=== PATIENT | female | born 1945 | race Caucasian/White ===

== ENCOUNTER 2021-02-21 10:04 | Emergency (ER) | payer MEDICARE ==
[2021-02-21] MEDS ORDERED: Sodium Chloride 0.9% 500 ML ONE ×2 (10:50→12:18)
[2021-02-21 11:10] LABS: ALT (SGPT) 29 U/L (8-55); AST (SGOT) 19 U/L (5-34); Albumin 3.7 g/dL (3.4-4.8); Alkaline Phosphatase 85 U/L (40-110); Anion Gap 14 mmol/L (10-20); BUN (Urea Nitrogen) 9 mg/dL (9.8-20.1); Bilirubin, Total 1.2 mg/dL (0.2-1.2); Calc. Creatinine Clearance 0 mL/min (70-130); Calcium 9.2 mg/dL (7.8-10.44); Carbon Dioxide 30 mmol/L (23-31); Chloride 89 mmol/L (98-107); Globulin 2.4 g/dL (2.4-3.5); Glucose 136 mg/dL (83-110); Potassium 4.2 mmol/L (3.5-5.1); Protein, Total 6.1 g/dL (5.8-8.1); Sodium 129 mmol/L (136-145)
[2021-02-21 11:17] LABS: Hemoglobin 12.5 g/dL (12.0-16.0); Mean Corpuscular HGB CONC 33.3 g/dL (32.0-36.0); Mean Corpuscular Hemoglobin 32.5 pg (27.0-31.0); Mean Corpuscular Volume 97.8 fL (78.0-98.0); Mean Platelet Volume 7.9 fL (7.4-10.4); Platelet Count 236 thou/uL (130-400); RBC Distribution Width 11.9 % (11.5-14.5); Red Blood Cell (RBC) Count 3.84 mill/uL (4.20-5.40); White Blood Cell (WBC) Count 12.6 thou/uL (4.8-10.8)
[2021-02-21 11:18] LABS: Band 3 % (5-11); Lymphocytes 5 % (21-51); MDiff Complete? YES; Monocytes 2 % (0-10); Neutrophil 90 % (42-75); Platelet Morphology Comment Appears Adequate
[2021-02-21] MEDS ORDERED: Sodium Chloride 0.9% 250 ML 250 ML ONE (11:25)
[2021-02-21] MEDS ORDERED: cefTRIAXone\\ROCEPHIN 2 GM VIAL ONE (11:25)
[2021-02-21] MEDS ORDERED: Azithromycin 500 MG VIAL ONE (11:25)
[2021-02-21] MEDS ORDERED: Sodium Chloride 0.9% 100 ML ONE (11:25)
[2021-02-21 11:35] LABS: Bilirubin Negative (Negative); Blood, Urine Trace (Negative); Clarity Clear (Clear); Glucose, Urine (Dipstick) Negative (Negative); Ketone, Urine Trace mg/dL (Negative); Leukocyte Negative (Negative); Nitrite Negative (Negative); Protein, Urine (Dipstick) 100 mg/dL (Neg-Trace)
[2021-02-21 11:46] LABS: Bacteria/HPF Rare-Few HPF (None Seen); RBC/HPF 0-3 HPF (0-3); Squamous Epithelial 0-3 HPF (0-3)
[2021-02-21 11:54] LABS: Bicarbonate (HCO3v) 30.9 mmol/L (22.0-28.0); CO2 Tension (PvCO2) 54.7 mmHg (42.0-51.0); Calcium, Ionized 1.14 mmol/L (1.15-1.33); Chloride 89 mmol/L (98-107); Hemoglobin - Calc 13.7 g/dL (12.0-16.0); Potassium 4.1 mmol/L (3.5-5.1); Sodium 131 mmol/L (138-145); T. Carbon Dioxide 32.6 mmol/L (22.0-28.0); vO2 Saturation-calc 61.5 % (60.0-85.0)
[2021-02-21 11:59] LABS: SARS-CoV-2 NAA Rapid Test Not Detected (NotDetected)
[2021-02-21] MEDS ORDERED: Albuterol Sulfate 2.5 mg/3 ml Neb ONE (14:44)
[2021-02-21] MEDS ORDERED: Sodium Chloride 0.9% 1,000 ML ONE (16:13)
[2021-02-21] MEDS ORDERED: Mometasone/Formoterol 200/5 60 PUFF INH SCH (19:00)
[2021-02-21] MEDS ORDERED: Budesonide 0.5 MG/2 ML NEB ONE (19:42)
[2021-02-21] MEDS ORDERED: Albuterol Sulfate 2.5 mg/0.5 ml Neb ONE (19:42)
== END 2021-02-21 20:23 | disposition short-term general hospital (02) ==
LOC: NAV ERS 10:04
DX: J18.9 Pneumonia, unspecified organism (principal); R00.0 Tachycardia, unspecified; E03.9 Hypothyroidism, unspecified; J44.9 Chronic obstructive pulmonary disease, unspecified; I48.91 Unspecified atrial fibrillation; M19.90 Unspecified osteoarthritis, unspecified site; Z87.891 Personal history of nicotine dependence; Z79.01 Long term (current) use of anticoagulants; Z79.899 Other long term (current) drug therapy; Z20.822 Contact with and (suspected) exposure to COVID-19
CPT/HCPCS: 0240U; 71045; 80053; 81003; 81015; 82330; 82803; 83605; 83880; 84484; 85014; 85025; 87040; 93005; 94640; 94760; 96365; 96367; J0456; J0696; J3490; J7030; J7050; J7611; J7626

== ENCOUNTER 2021-02-25 13:14 | Inpatient (IN) | payer MEDICARE ==
[2021-02-25] MEDS ORDERED: Albuterol Sulfate 2.5 mg/3 ml Neb NEB PRN (14:20)
[2021-02-25 14:29] VITALS: BMI 18.1
[2021-02-25] MEDS: Dronedarone HCl 400 MG TAB PO SCH (17:42)
[2021-02-25] MEDS: Ipratropium Bromide 2.5 ml Neb NEB SCH (17:42)
[2021-02-25] MEDS: ALPRAZolam 0.25 MG TAB PO PRN (20:28)
[2021-02-25] MEDS: Mometasone/Formoterol 200/5 60 PUFF INH SCH (20:28)
[2021-02-25] MEDS: guaiFENesin ER 600 MG TAB PO SCH (20:29)
[2021-02-25] MEDS: Cefdinir 300 MG CAP PO SCH (20:30)
[2021-02-25] MEDS: Doxycycline 100 MG CAP PO SCH (20:30)
[2021-02-25] MEDS: Vit A,C & E/Lutein/Minerals Tablet PO SCH (20:30)
[2021-02-25] MEDS: Famotidine 20 MG TAB PO SCH (20:31)
[2021-02-25] MEDS: Apixaban 5 MG TAB PO SCH (20:31)
[2021-02-26] MEDS: Ipratropium Bromide 2.5 ml Neb NEB SCH ×4 (00:21→17:43)
[2021-02-26] MEDS: Levothyroxine Sodium 112 MCG TAB PO SCH (05:35)
[2021-02-26] MEDS: ALPRAZolam 0.25 MG TAB PO PRN ×3 (05:54→21:11)
[2021-02-26 06:15] LABS: Hemoglobin 14.6 g/dL (12.0-16.0)
[2021-02-26 06:16] LABS: Platelet Count 339 thou/uL (130-400)
[2021-02-26 06:26] LABS: Calc. Creatinine Clearance 64 mL/min (70-130)
[2021-02-26] MEDS: Polyethylene Glycol 3350 17 GM Packet PO SCH (08:09)
[2021-02-26] MEDS: guaiFENesin ER 600 MG TAB PO SCH ×2 (08:11→21:11)
[2021-02-26] MEDS: Dronedarone HCl 400 MG TAB PO SCH ×2 (08:11→17:43)
[2021-02-26] MEDS: Cefdinir 300 MG CAP PO SCH ×2 (08:11→21:10)
[2021-02-26] MEDS: Furosemide 20 MG TAB PO SCH (08:11)
[2021-02-26] MEDS: Apixaban 5 MG TAB PO SCH ×2 (08:11→21:10)
[2021-02-26] MEDS: Doxycycline 100 MG CAP PO SCH ×2 (08:12→21:10)
[2021-02-26] MEDS: Vit A,C & E/Lutein/Minerals Tablet PO SCH ×2 (08:12→21:11)
[2021-02-26] MEDS: Famotidine 20 MG TAB PO SCH ×2 (08:12→21:21)
[2021-02-26] MEDS: Multivitamin W/ Minerals 1 TAB PO SCH (08:13)
[2021-02-26] MEDS: Mometasone/Formoterol 200/5 60 PUFF INH SCH ×2 (08:13→21:12)
[2021-02-26] MEDS: LACTINEX 1 TAB PO SCH (08:52)
[2021-02-26] MEDS ORDERED: predniSONE 20 MG TAB PO SCH (09:00)
[2021-02-26] MEDS: predniSONE 10 MG TAB PO SCH (10:39)
[2021-02-26 14:34] LABS: SARS-CoV-2 PCR by NAA Not Detected (NotDetected)
[2021-02-27] MEDS: Ipratropium Bromide 2.5 ml Neb NEB SCH ×5 (00:32→23:18)
[2021-02-27] MEDS: Levothyroxine Sodium 112 MCG TAB PO SCH (06:04)
[2021-02-27 06:44] LABS: ALT (SGPT) 29 U/L (8-55); AST (SGOT) 16 U/L (5-34); Albumin 3.5 g/dL (3.4-4.8); Alkaline Phosphatase 81 U/L (40-110); Anion Gap 12 mmol/L (10-20); BUN (Urea Nitrogen) 13 mg/dL (9.8-20.1); Bilirubin, Total 0.5 mg/dL (0.2-1.2); Calc. Creatinine Clearance 61 mL/min (70-130); Calcium 9.5 mg/dL (7.8-10.44); Carbon Dioxide 33 mmol/L (23-31); Chloride 93 mmol/L (98-107); Glucose 89 mg/dL (83-110); Protein, Total 6.5 g/dL (5.8-8.1); Sodium 134 mmol/L (136-145)
[2021-02-27 07:08] LABS: Hemoglobin 13.8 g/dL (12.0-16.0); MDiff Complete? YES; Mean Corpuscular HGB CONC 32.4 g/dL (32.0-36.0); Mean Corpuscular Hemoglobin 31.8 pg (27.0-31.0); Mean Corpuscular Volume 97.9 fL (78.0-98.0); Mean Platelet Volume 6.2 fL (7.4-10.4); Platelet Count 549 thou/uL (130-400); Red Blood Cell (RBC) Count 4.35 mill/uL (4.20-5.40); White Blood Cell (WBC) Count 16.6 thou/uL (4.8-10.8)
[2021-02-27 07:09] LABS: Lymphocytes 4 % (21-51); Monocytes 7 % (0-10); Neutrophil 89 % (42-75); Platelet Morphology Comment Appears Increased
[2021-02-27] MEDS: Mometasone/Formoterol 200/5 60 PUFF INH SCH ×2 (07:53→20:23)
[2021-02-27] MEDS: predniSONE 10 MG TAB PO SCH (07:54)
[2021-02-27] MEDS: Polyethylene Glycol 3350 17 GM Packet PO SCH (07:54)
[2021-02-27] MEDS: guaiFENesin ER 600 MG TAB PO SCH ×2 (07:54→20:24)
[2021-02-27] MEDS: Multivitamin W/ Minerals 1 TAB PO SCH (07:54)
[2021-02-27] MEDS: Dronedarone HCl 400 MG TAB PO SCH ×2 (07:55→17:08)
[2021-02-27] MEDS: Furosemide 20 MG TAB PO SCH (07:55)
[2021-02-27] MEDS: Apixaban 5 MG TAB PO SCH ×2 (07:55→20:25)
[2021-02-27] MEDS: Doxycycline 100 MG CAP PO SCH ×2 (07:55→20:26)
[2021-02-27] MEDS: Cefdinir 300 MG CAP PO SCH ×2 (07:55→20:25)
[2021-02-27] MEDS: LACTINEX 1 TAB PO SCH (07:55)
[2021-02-27] MEDS: Vit A,C & E/Lutein/Minerals Tablet PO SCH ×2 (07:55→20:26)
[2021-02-27] MEDS: Famotidine 20 MG TAB PO SCH ×2 (07:56→20:26)
[2021-02-27] MEDS: ALPRAZolam 0.25 MG TAB PO PRN ×2 (08:02→20:25)
[2021-02-28] MEDS: Levothyroxine Sodium 112 MCG TAB PO SCH (05:46)
[2021-02-28] MEDS: Ipratropium Bromide 2.5 ml Neb NEB SCH ×3 (05:46→17:43)
[2021-02-28] MEDS: ALPRAZolam 0.25 MG TAB PO PRN ×2 (07:02→20:51)
[2021-02-28] MEDS: Dronedarone HCl 400 MG TAB PO SCH ×3 (07:03→17:43)
[2021-02-28] MEDS: Polyethylene Glycol 3350 17 GM Packet PO SCH (08:23)
[2021-02-28] MEDS: predniSONE 20 MG TAB PO SCH (08:23)
[2021-02-28] MEDS: LACTINEX 1 TAB PO SCH (08:23)
[2021-02-28] MEDS: Vit A,C & E/Lutein/Minerals Tablet PO SCH ×2 (08:23→20:51)
[2021-02-28] MEDS: Famotidine 20 MG TAB PO SCH ×2 (08:23→20:51)
[2021-02-28] MEDS: Cefdinir 300 MG CAP PO SCH ×2 (08:23→20:51)
[2021-02-28] MEDS: Multivitamin W/ Minerals 1 TAB PO SCH (08:23)
[2021-02-28] MEDS: Doxycycline 100 MG CAP PO SCH ×2 (08:23→20:51)
[2021-02-28] MEDS: Apixaban 5 MG TAB PO SCH ×2 (08:24→20:51)
[2021-02-28] MEDS: Furosemide 20 MG TAB PO SCH (08:25)
[2021-02-28] MEDS: Mometasone/Formoterol 200/5 60 PUFF INH SCH ×2 (08:25→20:50)
[2021-02-28] MEDS: guaiFENesin ER 600 MG TAB PO SCH ×2 (08:25→20:51)
[2021-03-01] MEDS: Ipratropium Bromide 2.5 ml Neb NEB SCH ×4 (01:03→17:39)
[2021-03-01] MEDS: Levothyroxine Sodium 112 MCG TAB PO SCH (05:36)
[2021-03-01] MEDS: Mometasone/Formoterol 200/5 60 PUFF INH SCH ×2 (08:49→20:38)
[2021-03-01] MEDS: Famotidine 20 MG TAB PO SCH ×2 (08:50→20:36)
[2021-03-01] MEDS: Dronedarone HCl 400 MG TAB PO SCH ×2 (08:52→17:37)
[2021-03-01] MEDS: Furosemide 20 MG TAB PO SCH (08:52)
[2021-03-01] MEDS: Vit A,C & E/Lutein/Minerals Tablet PO SCH ×2 (08:54→20:37)
[2021-03-01] MEDS: LACTINEX 1 TAB PO SCH (08:54)
[2021-03-01] MEDS: guaiFENesin ER 600 MG TAB PO SCH ×2 (08:54→20:37)
[2021-03-01] MEDS: Multivitamin W/ Minerals 1 TAB PO SCH (08:55)
[2021-03-01] MEDS: predniSONE 20 MG TAB PO SCH (08:55)
[2021-03-01] MEDS: Polyethylene Glycol 3350 17 GM Packet PO SCH (08:56)
[2021-03-01] MEDS: Apixaban 5 MG TAB PO SCH ×2 (08:56→20:37)
[2021-03-01] MEDS: ALPRAZolam 0.25 MG TAB PO PRN (20:37)
[2021-03-02] MEDS: Ipratropium Bromide 2.5 ml Neb NEB SCH ×4 (00:04→17:54)
[2021-03-02] MEDS: Acetaminophen 500 MG TAB PO PRN (01:45)
[2021-03-02] MEDS: Levothyroxine Sodium 112 MCG TAB PO SCH (05:47)
[2021-03-02] MEDS: Mometasone/Formoterol 200/5 60 PUFF INH SCH ×2 (08:56→20:39)
[2021-03-02] MEDS: Famotidine 20 MG TAB PO SCH ×2 (08:58→20:40)
[2021-03-02] MEDS: Multivitamin W/ Minerals 1 TAB PO SCH (08:58)
[2021-03-02] MEDS: LACTINEX 1 TAB PO SCH (08:58)
[2021-03-02] MEDS: guaiFENesin ER 600 MG TAB PO SCH ×2 (08:58→20:40)
[2021-03-02] MEDS: Dronedarone HCl 400 MG TAB PO SCH ×2 (08:58→17:54)
[2021-03-02] MEDS: Vit A,C & E/Lutein/Minerals Tablet PO SCH ×2 (08:58→20:40)
[2021-03-02] MEDS: Apixaban 5 MG TAB PO SCH ×2 (08:58→20:40)
[2021-03-02] MEDS: Furosemide 20 MG TAB PO SCH (08:58)
[2021-03-02] MEDS: Polyethylene Glycol 3350 17 GM Packet PO SCH (08:59)
[2021-03-02] MEDS: ALPRAZolam 0.25 MG TAB PO PRN (20:40)
[2021-03-03] MEDS: Levothyroxine Sodium 112 MCG TAB PO SCH (05:05)
[2021-03-03] MEDS: Ipratropium Bromide 2.5 ml Neb NEB SCH ×5 (05:06→22:46)
[2021-03-03] MEDS: guaiFENesin ER 600 MG TAB PO SCH ×2 (07:35→20:44)
[2021-03-03] MEDS: Famotidine 20 MG TAB PO SCH ×2 (07:35→20:43)
[2021-03-03] MEDS: Multivitamin W/ Minerals 1 TAB PO SCH (07:35)
[2021-03-03] MEDS: Polyethylene Glycol 3350 17 GM Packet PO SCH (07:35)
[2021-03-03] MEDS: Dronedarone HCl 400 MG TAB PO SCH ×2 (07:35→17:56)
[2021-03-03] MEDS: Apixaban 5 MG TAB PO SCH ×2 (07:35→20:43)
[2021-03-03] MEDS: LACTINEX 1 TAB PO SCH (07:35)
[2021-03-03] MEDS: Furosemide 20 MG TAB PO SCH (07:35)
[2021-03-03] MEDS: Vit A,C & E/Lutein/Minerals Tablet PO SCH ×2 (07:35→20:43)
[2021-03-03] MEDS: Mometasone/Formoterol 200/5 60 PUFF INH SCH ×2 (07:38→20:43)
[2021-03-03] MEDS: Nystatin 500,000 UNITS/5 ML UDCUP SSW SCH ×3 (14:00→20:43)
[2021-03-03] MEDS: ALPRAZolam 0.25 MG TAB PO PRN (20:44)
[2021-03-04] MEDS: Acetaminophen 500 MG TAB PO PRN (02:06)
[2021-03-04] MEDS: Ipratropium Bromide 2.5 ml Neb NEB SCH ×4 (05:24→21:52)
[2021-03-04] MEDS: Levothyroxine Sodium 112 MCG TAB PO SCH (05:24)
[2021-03-04] MEDS: Mometasone/Formoterol 200/5 60 PUFF INH SCH ×2 (07:37→20:46)
[2021-03-04] MEDS: Polyethylene Glycol 3350 17 GM Packet PO SCH (07:38)
[2021-03-04] MEDS: Furosemide 20 MG TAB PO SCH (07:38)
[2021-03-04] MEDS: LACTINEX 1 TAB PO SCH (07:38)
[2021-03-04] MEDS: Nystatin 500,000 UNITS/5 ML UDCUP SSW SCH ×4 (07:39→20:46)
[2021-03-04] MEDS: Famotidine 20 MG TAB PO SCH ×2 (07:39→20:46)
[2021-03-04] MEDS: Multivitamin W/ Minerals 1 TAB PO SCH (07:39)
[2021-03-04] MEDS: Apixaban 5 MG TAB PO SCH ×2 (07:39→20:46)
[2021-03-04] MEDS: Dronedarone HCl 400 MG TAB PO SCH ×2 (07:39→17:02)
[2021-03-04] MEDS: guaiFENesin ER 600 MG TAB PO SCH ×2 (07:39→20:46)
[2021-03-04] MEDS: Vit A,C & E/Lutein/Minerals Tablet PO SCH ×2 (07:39→20:46)
[2021-03-04] MEDS: ALPRAZolam 0.25 MG TAB PO PRN ×2 (09:44→20:46)
[2021-03-05] MEDS: Acetaminophen 500 MG TAB PO PRN (03:27)
[2021-03-05] MEDS: Ipratropium Bromide 2.5 ml Neb NEB SCH ×4 (05:29→21:29)
[2021-03-05] MEDS: Levothyroxine Sodium 112 MCG TAB PO SCH (05:29)
[2021-03-05] MEDS: Mometasone/Formoterol 200/5 60 PUFF INH SCH ×2 (08:33→20:34)
[2021-03-05] MEDS: Apixaban 5 MG TAB PO SCH ×2 (08:36→20:35)
[2021-03-05] MEDS: Dronedarone HCl 400 MG TAB PO SCH ×2 (08:36→16:38)
[2021-03-05] MEDS: LACTINEX 1 TAB PO SCH (08:36)
[2021-03-05] MEDS: Famotidine 20 MG TAB PO SCH ×2 (08:38→20:35)
[2021-03-05] MEDS: guaiFENesin ER 600 MG TAB PO SCH ×2 (08:39→20:35)
[2021-03-05] MEDS: Nystatin 500,000 UNITS/5 ML UDCUP SSW SCH ×4 (08:39→20:35)
[2021-03-05] MEDS: Furosemide 20 MG TAB PO SCH (08:39)
[2021-03-05] MEDS: Vit A,C & E/Lutein/Minerals Tablet PO SCH ×2 (08:39→20:35)
[2021-03-05] MEDS: Polyethylene Glycol 3350 17 GM Packet PO SCH (08:39)
[2021-03-05] MEDS: Multivitamin W/ Minerals 1 TAB PO SCH (08:39)
[2021-03-05 18:21] LABS: SARS-CoV-2 NAA Rapid Test Not Detected (NotDetected)
[2021-03-05] MEDS: ALPRAZolam 0.25 MG TAB PO PRN (20:35)
[2021-03-06] MEDS: Levothyroxine Sodium 112 MCG TAB PO SCH (05:18)
[2021-03-06] MEDS: Ipratropium Bromide 2.5 ml Neb NEB SCH ×4 (05:18→23:58)
[2021-03-06] MEDS: Mometasone/Formoterol 200/5 60 PUFF INH SCH ×2 (08:21→20:11)
[2021-03-06] MEDS: LACTINEX 1 TAB PO SCH (08:23)
[2021-03-06] MEDS: Dronedarone HCl 400 MG TAB PO SCH ×2 (08:23→17:13)
[2021-03-06] MEDS: Apixaban 5 MG TAB PO SCH ×2 (08:23→20:12)
[2021-03-06] MEDS: Famotidine 20 MG TAB PO SCH ×2 (08:24→20:12)
[2021-03-06] MEDS: Multivitamin W/ Minerals 1 TAB PO SCH (08:24)
[2021-03-06] MEDS: guaiFENesin ER 600 MG TAB PO SCH ×2 (08:24→20:12)
[2021-03-06] MEDS: Vit A,C & E/Lutein/Minerals Tablet PO SCH ×2 (08:24→20:12)
[2021-03-06] MEDS: Nystatin 500,000 UNITS/5 ML UDCUP SSW SCH ×4 (08:24→20:12)
[2021-03-06] MEDS: Furosemide 20 MG TAB PO SCH (08:24)
[2021-03-06] MEDS: Polyethylene Glycol 3350 17 GM Packet PO SCH (08:24)
[2021-03-06] MEDS: ALPRAZolam 0.25 MG TAB PO PRN (20:12)
[2021-03-07] MEDS: Ipratropium Bromide 2.5 ml Neb NEB SCH (05:17)
[2021-03-07] MEDS: Levothyroxine Sodium 112 MCG TAB PO SCH (05:17)
[2021-03-07] MEDS: Mometasone/Formoterol 200/5 60 PUFF INH SCH (07:31)
[2021-03-07] MEDS: guaiFENesin ER 600 MG TAB PO SCH (07:33)
[2021-03-07] MEDS: Furosemide 20 MG TAB PO SCH (07:33)
[2021-03-07] MEDS: LACTINEX 1 TAB PO SCH (07:33)
[2021-03-07] MEDS: Nystatin 500,000 UNITS/5 ML UDCUP SSW SCH (07:33)
[2021-03-07] MEDS: Multivitamin W/ Minerals 1 TAB PO SCH (07:33)
[2021-03-07] MEDS: Famotidine 20 MG TAB PO SCH (07:33)
[2021-03-07] MEDS: Apixaban 5 MG TAB PO SCH (07:33)
[2021-03-07] MEDS: Vit A,C & E/Lutein/Minerals Tablet PO SCH (07:33)
[2021-03-07] MEDS: Polyethylene Glycol 3350 17 GM Packet PO SCH (07:33)
[2021-03-07] MEDS: Dronedarone HCl 400 MG TAB PO SCH (07:33)
[2021-03-07 08:03] VITALS: BP 100/66; TEMP 97.9
== END 2021-03-07 10:30 | disposition home or self-care (01) | DRG 193 ==
LOC: NAV ACUTE 13:14
PROVIDERS: ADMIT Internal Medicine; ATTEND Internal Medicine
DX: J18.9 Pneumonia, unspecified organism (principal); J96.21 Acute and chronic respiratory failure with hypoxia; I47.1 Supraventricular tachycardia; J44.0 Chronic obstructive pulmonary disease with (acute) lower respiratory infection; J44.1 Chronic obstructive pulmonary disease with (acute) exacerbation; E87.1 Hypo-osmolality and hyponatremia; Z20.822 Contact with and (suspected) exposure to COVID-19; M81.0 Age-related osteoporosis without current pathological fracture; I48.91 Unspecified atrial fibrillation; E03.9 Hypothyroidism, unspecified; M19.90 Unspecified osteoarthritis, unspecified site; F41.9 Anxiety disorder, unspecified; R53.81 Other malaise; F32.A Depression, unspecified; M85.80 Other specified disorders of bone density and structure, unspecified site; D72.819 Decreased white blood cell count, unspecified; T38.0X5A Adverse effect of glucocorticoids and synthetic analogues, initial encounter; B37.9 Candidiasis, unspecified; Z87.891 Personal history of nicotine dependence; Z88.5 Allergy status to narcotic agent; Z79.899 Other long term (current) drug therapy
CPT/HCPCS: 36415; 80053; 82565; 85014; 85018; 85025; 85049; 94640; 94664; J7512; U0002; U0003; U0005

== ENCOUNTER 2023-02-20 11:23 | Outpatient (CLI) | payer MEDICARE ==
[2023-02-20 11:49] LABS: #Basophils 0.1 thou/uL (0.0-0.2); #Monocytes 0.2 thou/uL (0.11-0.59); #Neutrophils 10.1 thou/uL (1.40-6.50); %Basophils 1.9 % (0.0-1.0); %Eosinophils 0.7 % (0.0-10.0); %Lymphocytes 8.2 % (21.0-51.0); %Monocytes 8.7 % (0.0-10.0); %Neutrophils 80.5 % (42.0-75.0); Hematocrit 44.1 % (36.0-47.0); Hemoglobin 14.9 g/dL (12.0-16.0); Mean Corpuscular HGB CONC 33.7 g/dL (32.0-36.0); Mean Corpuscular Hemoglobin 32.3 pg (27.0-31.0); Mean Platelet Volume 7.6 fL (7.4-10.4); Platelet Count 347 10x3/uL (130-400); White Blood Cell (WBC) Count 12.6 10x3/uL (4.8-10.8)
[2023-02-20 11:54] LABS: Anion Gap 15 mmol/L (10-20); BUN (Urea Nitrogen) 13 mg/dL (9.8-20.1); Calc. Creatinine Clearance 0 mL/min (70-130); Calcium 9.4 mg/dL (7.8-10.44); Carbon Dioxide 30 mmol/L (23-31); Chloride 93 mmol/L (98-107); Estimated GFR 90; Glucose 97 mg/dL (83-110); Potassium 3.7 mmol/L (3.5-5.1); Sodium 134 mmol/L (136-145)
== END 2023-02-20 11:24 | disposition home or self-care (01) ==
LOC: NAV RAD 11:23
PROVIDERS: ATTEND Student in an Organized Health Care Education/Training Program
DX: J15.9 Unspecified bacterial pneumonia (principal); R19.7 Diarrhea, unspecified; I70.0 Atherosclerosis of aorta; J98.4 Other disorders of lung; R91.8 Other nonspecific abnormal finding of lung field
CPT/HCPCS: 36415; 71045; 80048; 83735; 85025

== ENCOUNTER 2023-09-17 11:54 | Outpatient (CLI) | payer MEDICARE | END 2023-09-17 11:55 | disposition home or self-care (01) | LOC: NAV RAD 11:54 | PROVIDERS: ATTEND Student in an Organized Health Care Education/Training Program | DX: J44.1 Chronic obstructive pulmonary disease with (acute) exacerbation (principal) | CPT/HCPCS: 71046 ==

== ENCOUNTER 2023-10-08 06:33 | Inpatient (IN) | payer MEDICARE ==
[2023-10-08] MEDS ORDERED: Ondansetron ODT 4 MG TAB PO PRN (11:58)
[2023-10-08] MEDS ORDERED: Bisacodyl 5 MG TAB PO PRN (11:58)
[2023-10-08] MEDS ORDERED: Senokot S 8.6-50 MG TAB PO PRN (11:58)
[2023-10-08] MEDS: Dronedarone HCl 400 MG TAB PO SCH (18:13)
[2023-10-08] MEDS: Budesonide 0.5 MG/2 ML NEB INH SCH (18:13)
[2023-10-08] MEDS: Acetaminophen 325 MG TAB PO PRN (22:36)
[2023-10-08] MEDS: Apixaban 2.5 MG TAB PO SCH (22:37)
[2023-10-08] MEDS: Mometasone 200 MCG/Formoterol 5 MCG 60 PUFF INHALER INH SCH (22:37)
[2023-10-08] MEDS: ALPRAZolam 0.25 MG TAB PO PRN (22:37)
[2023-10-08] MEDS: NIRMATRELVIR 150 MG/RITONAVIR 100 MG (RENAL) TAB PO SCH (23:15)
[2023-10-09 05:41] LABS: #Basophils 0.1 thou/uL (0.0-0.2); #Lymphocytes 0.6 thou/uL (1.20-3.40); #Monocytes 0.8 thou/uL (0.11-0.59); #Neutrophils 10.9 thou/uL (1.40-6.50); %Eosinophils 0.1 % (0.0-10.0); %Lymphocytes 5.1 % (21.0-51.0); %Monocytes 6.4 % (0.0-10.0); %Neutrophils 87.5 % (42.0-75.0); Hematocrit 35.4 % (36.0-47.0); Hemoglobin 11.7 g/dL (12.0-16.0); Mean Corpuscular Hemoglobin 30.9 pg (27.0-31.0); Mean Corpuscular Volume 93.6 fl (78.0-98.0); Mean Platelet Volume 6.5 fL (7.4-10.4); Platelet Count 315 10x3/uL (130-400); RBC Distribution Width 11.6 % (11.5-14.5); Red Blood Cell (RBC) Count 3.78 mill/uL (4.20-5.40); White Blood Cell (WBC) Count 12.4 10x3/uL (4.8-10.8)
[2023-10-09 05:56] LABS: ALT (SGPT) 22 U/L (8-55); AST (SGOT) 17 U/L (5-34); Albumin 3.1 g/dL (3.4-4.8); Alkaline Phosphatase 67 U/L (40-110); Anion Gap 12 mmol/L (10-20); BUN (Urea Nitrogen) 30 mg/dL (9.8-20.1); Bilirubin, Total 0.7 mg/dL (0.2-1.2); Calc. Creatinine Clearance 35 mL/min (70-130); Calcium 9.5 mg/dL (7.8-10.44); Carbon Dioxide 35 mmol/L (23-31); Chloride 93 mmol/L (98-107); Estimated GFR 72; Globulin 3.1 g/dL (2.4-3.5); Glucose 90 mg/dL (83-110); Potassium 4.2 mmol/L (3.5-5.1); Protein, Total 6.2 g/dL (5.8-8.1); Sodium 136 mmol/L (136-145)
[2023-10-09] MEDS: Levothyroxine Sodium 125 MCG TAB PO SCH (06:01)
[2023-10-09] MEDS: Multivitamin W/ Minerals 1 TAB PO SCH (08:34)
[2023-10-09] MEDS: Potassium Chloride 20 MEQ TAB PO SCH (08:34)
[2023-10-09] MEDS: Bumetanide 1 MG TAB PO SCH (08:35)
[2023-10-09] MEDS: Famotidine 20 MG TAB PO SCH (08:36)
[2023-10-09] MEDS: predniSONE 20 MG TAB PO SCH (08:36)
[2023-10-09] MEDS: Digoxin 0.125 MG TAB PO SCH (08:36)
[2023-10-09] MEDS: Polyethylene Glycol 3350 17 GM Packet PO SCH (08:39)
[2023-10-09] MEDS: Acetaminophen 325 MG TAB PO PRN (20:24)
[2023-10-10] MEDS: Amoxicillin/Potassium Clav 875 MG TAB PO SCH ×3 (12:13→21:30)
[2023-10-10] MEDS: Multivitamin W/ Minerals 1 TAB PO SCH (12:14)
[2023-10-11 05:51] LABS: #Basophils 0.1 thou/uL (0.0-0.2); #Lymphocytes 0.6 thou/uL (1.20-3.40); #Monocytes 0.9 thou/uL (0.11-0.59); #Neutrophils 9.7 thou/uL (1.40-6.50); %Basophils 0.7 % (0.0-1.0); %Eosinophils 0.4 % (0.0-10.0); %Lymphocytes 5.1 % (21.0-51.0); %Monocytes 7.6 % (0.0-10.0); %Neutrophils 86.3 % (42.0-75.0); Hematocrit 35.1 % (36.0-47.0); Hemoglobin 11.2 g/dL (12.0-16.0); Mean Corpuscular Hemoglobin 30.3 pg (27.0-31.0); Mean Corpuscular Volume 94.8 fl (78.0-98.0); Platelet Count 288 10x3/uL (130-400); RBC Distribution Width 11.7 % (11.5-14.5); White Blood Cell (WBC) Count 11.2 10x3/uL (4.8-10.8)
[2023-10-11 05:56] LABS: Anion Gap 14 mmol/L (10-20); BUN (Urea Nitrogen) 23 mg/dL (9.8-20.1); Calc. Creatinine Clearance 39 mL/min (70-130); Calcium 8.8 mg/dL (7.8-10.44); Carbon Dioxide 32 mmol/L (23-31); Chloride 94 mmol/L (98-107); Estimated GFR 83; Glucose 73 mg/dL (83-110); Potassium 4.6 mmol/L (3.5-5.1); Sodium 135 mmol/L (136-145)
[2023-10-11 05:58] LABS: Digoxin 1.32 ng/mL (0.8-2.0)
[2023-10-11] MEDS: Dronedarone HCl 400 MG TAB PO SCH (16:31)
[2023-10-12 03:39] VITALS: BMI 14.8
[2023-10-12 12:54] LABS: Anion Gap 17 mmol/L (10-20); BUN (Urea Nitrogen) 19 mg/dL (9.8-20.1); Calc. Creatinine Clearance 40 mL/min (70-130); Carbon Dioxide 28 mmol/L (23-31); Chloride 92 mmol/L (98-107); Estimated GFR 87; Glucose 101 mg/dL (83-110); Potassium 4.2 mmol/L (3.5-5.1); Sodium 133 mmol/L (136-145)
[2023-10-13] MEDS: Sodium Chloride 0.9% 500 ML IVPB SCH (07:51)
[2023-10-13] MEDS: predniSONE 20 MG TAB PO SCH (07:58)
[2023-10-13] MEDS ORDERED: Ventolin HFA Inhaler 60 PUFF INHALER INH PRN (11:27)
[2023-10-13] MEDS: Nystatin 500,000 UNITS/5 ML UDCUP SSW SCH (12:47)
[2023-10-14 05:57] LABS: #Basophils 0.1 thou/uL (0.0-0.2); #Eosinphils 0.1 thou/uL (0.0-0.7); #Lymphocytes 0.7 thou/uL (1.20-3.40); #Monocytes 0.9 thou/uL (0.11-0.59); #Neutrophils 8.8 thou/uL (1.40-6.50); %Basophils 0.9 % (0.0-1.0); %Eosinophils 0.6 % (0.0-10.0); %Lymphocytes 6.3 % (21.0-51.0); %Monocytes 8.7 % (0.0-10.0); %Neutrophils 83.5 % (42.0-75.0); Hematocrit 33.8 % (36.0-47.0); Mean Corpuscular HGB CONC 32.6 g/dL (32.0-36.0); Mean Corpuscular Hemoglobin 30.7 pg (27.0-31.0); Mean Corpuscular Volume 94.2 fl (78.0-98.0); Mean Platelet Volume 7.6 fL (7.4-10.4); Platelet Count 251 10x3/uL (130-400); RBC Distribution Width 11.7 % (11.5-14.5); White Blood Cell (WBC) Count 10.6 10x3/uL (4.8-10.8)
[2023-10-14 06:03] LABS: Anion Gap 14 mmol/L (10-20); BUN (Urea Nitrogen) 13 mg/dL (9.8-20.1); Calc. Creatinine Clearance 44 mL/min (70-130); Calcium 8.4 mg/dL (7.8-10.44); Carbon Dioxide 27 mmol/L (23-31); Chloride 98 mmol/L (98-107); Estimated GFR 90; Glucose 80 mg/dL (83-110); Potassium 4.8 mmol/L (3.5-5.1); Sodium 134 mmol/L (136-145)
[2023-10-14] MEDS: Bumetanide 1 MG TAB PO SCH (07:47)
[2023-10-14] MEDS: Lidocaine 4% Topical Sol 50 ML BOT TOP SCH (09:01)
[2023-10-14] MEDS: Ipratropium/Albuterol 3 ML NEB NEB PRN (10:39)
[2023-10-14] MEDS: Ventolin HFA Inhaler 60 PUFF INHALER INH PRN (14:22)
[2023-10-16 05:55] LABS: Hematocrit 33.6 % (36.0-47.0); Hemoglobin 11.2 g/dL (12.0-16.0); Platelet Count 254 10x3/uL (130-400)
[2023-10-16] MEDS: Potassium Bicarbonate/Cit Ac 20 MEQ TAB PO SCH (11:05)
[2023-10-16] MEDS: Potassium Chloride 20 MEQ TAB PO SCH (13:08)
[2023-10-17] MEDS: predniSONE 5 MG TAB PO SCH (08:04)
[2023-10-17] MEDS: Potassium Chloride 20 MEQ TAB PO SCH (13:39)
[2023-10-17] MEDS: Bumetanide 1 MG TAB PO SCH (16:58)
[2023-10-18] MEDS ORDERED: Potassium Chloride 20 MEQ TAB PO SCH (12:00)
[2023-10-18] MEDS: Potassium Bicarbonate/Cit Ac 25 MEQ TAB PO SCH (12:24)
[2023-10-18] MEDS: Bumetanide 1 MG TAB PO SCH (14:14)
[2023-10-18] MEDS: guaiFENesin ER 600 MG TAB PO SCH (20:43)
[2023-10-19 05:36] LABS: #Basophils 0.1 thou/uL (0.0-0.2); #Eosinphils 0.1 thou/uL (0.0-0.7); #Lymphocytes 0.7 thou/uL (1.20-3.40); #Neutrophils 9.7 thou/uL (1.40-6.50); %Basophils 0.8 % (0.0-1.0); %Eosinophils 0.5 % (0.0-10.0); %Lymphocytes 6.2 % (21.0-51.0); %Monocytes 8.7 % (0.0-10.0); %Neutrophils 83.8 % (42.0-75.0); Hematocrit 36.7 % (36.0-47.0); Hemoglobin 11.9 g/dL (12.0-16.0); Mean Corpuscular HGB CONC 32.4 g/dL (32.0-36.0); Mean Corpuscular Hemoglobin 30.5 pg (27.0-31.0); Mean Corpuscular Volume 94.1 fl (78.0-98.0); Mean Platelet Volume 6.7 fL (7.4-10.4); Platelet Count 238 10x3/uL (130-400); RBC Distribution Width 12.3 % (11.5-14.5); White Blood Cell (WBC) Count 11.5 10x3/uL (4.8-10.8)
[2023-10-19 05:54] LABS: Anion Gap 11 mmol/L (10-20); BUN (Urea Nitrogen) 10 mg/dL (9.8-20.1); Calc. Creatinine Clearance 56 mL/min (70-130); Calcium 8.8 mg/dL (7.8-10.44); Carbon Dioxide 30 mmol/L (23-31); Chloride 95 mmol/L (98-107); Estimated GFR 91; Glucose 75 mg/dL (83-110); Sodium 132 mmol/L (136-145)
[2023-10-19] MEDS: Amoxicillin/Potassium Clav 875 MG TAB PO SCH ×2 (12:33→20:17)
[2023-10-20 05:42] LABS: #Basophils 0.1 thou/uL (0.0-0.2); #Monocytes 0.8 thou/uL (0.11-0.59); #Neutrophils 9.1 thou/uL (1.40-6.50); %Basophils 1.1 % (0.0-1.0); %Eosinophils 0.4 % (0.0-10.0); %Lymphocytes 8.7 % (21.0-51.0); %Monocytes 6.9 % (0.0-10.0); %Neutrophils 82.9 % (42.0-75.0); Hematocrit 36.4 % (36.0-47.0); Mean Corpuscular HGB CONC 32.8 g/dL (32.0-36.0); Mean Corpuscular Hemoglobin 30.5 pg (27.0-31.0); Mean Corpuscular Volume 92.9 fl (78.0-98.0); Mean Platelet Volume 6.8 fL (7.4-10.4); Platelet Count 235 10x3/uL (130-400); RBC Distribution Width 12.5 % (11.5-14.5); Red Blood Cell (RBC) Count 3.93 mill/uL (4.20-5.40)
[2023-10-20 05:56] LABS: Anion Gap 14 mmol/L (10-20); BUN (Urea Nitrogen) 12 mg/dL (9.8-20.1); Calc. Creatinine Clearance 52 mL/min (70-130); Calcium 8.9 mg/dL (7.8-10.44); Carbon Dioxide 32 mmol/L (23-31); Chloride 95 mmol/L (98-107); Estimated GFR 90; Glucose 80 mg/dL (83-110); Potassium 4.2 mmol/L (3.5-5.1); Sodium 137 mmol/L (136-145)
[2023-10-20] MEDS: Saccharomyces boulardii 250 MG CAP PO SCH (08:38)
[2023-10-20] MEDS: GUAIFENESIN SF SOLN 200 MG/10 ML UDCUP PO SCH (21:49)
[2023-10-21] MEDS ORDERED: Lidocaine 4% Topical Sol 50 ML BOT TOP SCH (09:30)
[2023-10-21] MEDS: Lidocaine 4% Topical Sol 50 ML BOT TOP SCH (09:50)
[2023-10-22] MEDS ORDERED: Polyethylene Glycol 3350 17 GM Packet PO PRN (10:07)
[2023-10-23 06:32] VITALS: BMI 17.1
[2023-10-24] MEDS: Potassium Chloride 20 MEQ TAB PO SCH (12:03)
[2023-10-25 05:30] LABS: #Basophils 0.1 thou/uL (0.0-0.2); #Lymphocytes 0.8 thou/uL (1.20-3.40); %Basophils 1.3 % (0.0-1.0); %Eosinophils 0.5 % (0.0-10.0); %Lymphocytes 8.5 % (21.0-51.0); %Monocytes 11.2 % (0.0-10.0); %Neutrophils 78.5 % (42.0-75.0); Hemoglobin 11.9 g/dL (12.0-16.0); Mean Corpuscular HGB CONC 33.1 g/dL (32.0-36.0); Mean Corpuscular Hemoglobin 30.7 pg (27.0-31.0); Mean Corpuscular Volume 92.7 fl (78.0-98.0); Mean Platelet Volume 7.3 fL (7.4-10.4); Platelet Count 224 10x3/uL (130-400); RBC Distribution Width 12.2 % (11.5-14.5); Red Blood Cell (RBC) Count 3.88 mill/uL (4.20-5.40)
[2023-10-25 05:46] LABS: Anion Gap 11 mmol/L (10-20); BUN (Urea Nitrogen) 10 mg/dL (9.8-20.1); Calc. Creatinine Clearance 54 mL/min (70-130); Calcium 8.8 mg/dL (7.8-10.44); Carbon Dioxide 32 mmol/L (23-31); Chloride 96 mmol/L (98-107); Estimated GFR 91; Glucose 81 mg/dL (83-110); Potassium 4.7 mmol/L (3.5-5.1); Sodium 134 mmol/L (136-145)
[2023-10-26] MEDS: Bumetanide 1 MG TAB PO SCH (05:42)
[2023-10-28] MEDS: Lidocaine 4% Topical Sol 50 ML BOT TOP SCH (16:24)
[2023-10-31 06:25] LABS: #Basophils 0.2 thou/uL (0.0-0.2); #Lymphocytes 0.6 thou/uL (1.20-3.40); #Monocytes 1.1 thou/uL (0.11-0.59); #Neutrophils 5.3 thou/uL (1.40-6.50); %Basophils 2.1 % (0.0-1.0); %Eosinophils 0.6 % (0.0-10.0); %Lymphocytes 7.8 % (21.0-51.0); %Monocytes 14.9 % (0.0-10.0); %Neutrophils 74.6 % (42.0-75.0); Hemoglobin 11.3 g/dL (12.0-16.0); Mean Corpuscular HGB CONC 33.4 g/dL (32.0-36.0); Mean Corpuscular Hemoglobin 30.9 pg (27.0-31.0); Mean Corpuscular Volume 92.5 fl (78.0-98.0); Mean Platelet Volume 6.6 fL (7.4-10.4); Platelet Count 346 10x3/uL (130-400); Red Blood Cell (RBC) Count 3.68 mill/uL (4.20-5.40); White Blood Cell (WBC) Count 7.1 10x3/uL (4.8-10.8)
[2023-10-31 06:38] LABS: Anion Gap 14 mmol/L (10-20); BUN (Urea Nitrogen) 8 mg/dL (9.8-20.1); Calc. Creatinine Clearance 62 mL/min (70-130); Carbon Dioxide 33 mmol/L (23-31); Chloride 91 mmol/L (98-107); Estimated GFR 94; Glucose 86 mg/dL (83-110); Potassium 3.6 mmol/L (3.5-5.1); Sodium 134 mmol/L (136-145)
[2023-10-31 07:17] VITALS: BP 94/59; TEMP 97.5
== END 2023-10-31 09:40 | disposition home health service (06) | DRG 947 ==
LOC: NAV ACUTE 16:17
PROVIDERS: ADMIT Family Medicine; ATTEND Family Medicine
DX: R53.81 Other malaise (principal); J12.82 Pneumonia due to coronavirus disease 2019; U07.1 COVID-19; J69.0 Pneumonitis due to inhalation of food and vomit; J96.11 Chronic respiratory failure with hypoxia; E87.1 Hypo-osmolality and hyponatremia; J44.9 Chronic obstructive pulmonary disease, unspecified; I48.0 Paroxysmal atrial fibrillation; E03.9 Hypothyroidism, unspecified; M19.90 Unspecified osteoarthritis, unspecified site; Z79.899 Other long term (current) drug therapy; Z66 Do not resuscitate; I95.9 Hypotension, unspecified
CPT/HCPCS: 36415; 36416; 71045; 71046; 80048; 80053; 80162; 84145; 85014; 85018; 85025; 85049; 94640; 94664; J7512; J7620; J7626